=== PATIENT | male | born 1975 ===

== ENCOUNTER 2023-01-12 08:28 | Day surgery (SDC) | payer OTHER, BC ==
[~2023-01-12] VITALS: Ht 180.3 cm; Wt 98.3 kg
[2023-01-12] MEDS ORDERED: Prozac20 MG PO (09:06)
[2023-01-12 10:12] VITALS: BP 131/79
--- NOTE | 2023-01-12 10:16 | NUR ---
01/12/23 1016 Shiloh Perry IV DC'D, CATH INTACT. PT TOLERATED WELL. GAUZE/COBAN IN PLACE
== END 2023-01-12 10:15 | disposition home or self-care (01) ==
LOC: ORSCSDS 08:28 → ORD 09:30 → ORSCSDS 09:30
PROVIDERS: Internal Medicine Gastroenterology
PROC: 0DBM8ZX Excision of Descending Colon, Via Natural or Artificial Opening Endoscopic, Diagnostic (ICD-10-PCS; principal; 2023-01-12 09:30)
DX: Z12.11 Encounter for screening for malignant neoplasm of colon (principal); K63.5 Polyp of colon; F32.A Depression, unspecified; K57.30 Diverticulosis of large intestine without perforation or abscess without bleeding; M62.89 Other specified disorders of muscle; Z79.899 Other long term (current) drug therapy
CPT/HCPCS: 88305; J2704; J7120

== ENCOUNTER → 2024-04-02 | Outpatient (CLI) | payer OTHER, BC ==
[~2024-04-02] MED LIST: Prozac20 MG PO
[2024-04-02 16:06] LABS: CHOL/HDL RATIO 5.2; Cholesterol 255 mg/dL (50-200); HDL Cholesterol 49 mg/dL (>39); LDL/HDL RATIO 3.7; Low Density Lipoprotein Chol 179 mg/dL (0-110); Triglycerides 134 mg/dL (30-160); Very Low Density Lipoprot Chol 26 mg/dL (6-32)
== END ==
LOC: LAB 09:15 → LAB SHORT 09:15
PROVIDERS: Family Medicine
DX: E78.5 Hyperlipidemia, unspecified (principal); E66.9 Obesity, unspecified
CPT/HCPCS: 80061

== ENCOUNTER → 2025-04-30 | Outpatient (CLI) | payer OTHER, BC ==
[2025-04-30 19:55] LABS: CHOL/HDL RATIO 5.7; Cholesterol 244 mg/dL (50-200); HDL Cholesterol 43 mg/dL (>39); LDL/HDL RATIO 3.8; Low Density Lipoprotein Chol 162 mg/dL (0-110); Triglycerides 195 mg/dL (30-160); Very Low Density Lipoprot Chol 39 mg/dL (6-32)
== END ==
LOC: LAB SHORT 15:54 → LAB 15:54
PROVIDERS: Family Medicine
DX: E78.5 Hyperlipidemia, unspecified (principal)
CPT/HCPCS: 80061